=== PATIENT | male | born 1960 | race Caucasian/White ===

== ENCOUNTER 2017-02-16 14:00 | Emergency (ER) | payer OTHER ==
[~2017-02-16] VITALS: Ht 177.8 cm; Wt 102.0 kg
[~2017-02-16 14:00] MED LIST: FOLI1TAB4 PO; LAMO100 PO; LISI-515 PO; MULTTAB67 PO; PREG25 PO; VITA100T2 PO
[2017-02-16 14:16] VITALS: BP 149/75; PULSE 81; RESP 18; TEMP 98; O2SAT 98
[2017-02-16 14:28] VITALS: BP 171/96; PULSE 77; RESP 19; TEMP 98.6; O2SAT 98
[2017-02-16 15:27] LABS: AUTOMATED NEUTROPHIL # 7.8 TH/MM3 (1.8-7.7); BASOPHIL % 0.2 % (0.0-2.0); EOSINOPHIL # 0.2 TH/MM3 (0-0.4); EOSINOPHIL % 2.3 % (0.0-4.0); HEMATOCRIT 38.4 % (39.0-51.0); HEMO FLAGS DIFF FINAL; LYMPH % 16.2 % (9.0-44.0); LYMPHOCYTE # 1.7 TH/MM3 (1.0-4.8); MEAN CELL VOLUME 91.5 FL (80.0-100.0); MEAN CORPUSCULAR HEMOGLOBIN 31.4 PG (27.0-34.0); MEAN CORPUSCULAR HGB CONC 34.3 % (32.0-36.0); NEUT % 73.3 % (16.0-70.0); PLATELET COUNT 330 TH/MM3 (150-450); RED BLOOD COUNT 4.19 MIL/MM3 (4.50-5.90); RED CELL DISTRIBUTION WIDTH 14.2 % (11.6-17.2); WHITE BLOOD COUNT 10.7 TH/MM3 (4.0-11.0)
[2017-02-16 15:29] LABS: BICARBONATE 27.7 MEQ/L (21.0-32.0); POTASSIUM 4.3 MEQ/L (3.5-5.1)
[2017-02-16] MEDS ORDERED: IOHEXOL 350 MG/ML 10 ML VIAL (for RAD DIAG) IVCONTRAST ONE (15:31)
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
[2017-02-16] MEDS ORDERED: ERYTOIN10 RIGHT EYE (16:39)
[2017-02-16] MEDS ORDERED: IBUPROFEN 800 MG TAB PO ONE (16:45)
== END 2017-02-16 17:11 | disposition home or self-care (01) ==
LOC: NEPD 14:00
DX: S80.01XA Contusion of right knee, initial encounter (principal); S05.11XA Contusion of eyeball and orbital tissues, right eye, initial encounter; S60.221A Contusion of right hand, initial encounter; S80.811A Abrasion, right lower leg, initial encounter; E78.5 Hyperlipidemia, unspecified; F17.200 Nicotine dependence, unspecified, uncomplicated; V89.2XXA Person injured in unspecified motor-vehicle accident, traffic, initial encounter; Y92.410 Unspecified street and highway as the place of occurrence of the external cause
CPT/HCPCS: 70486; 72125; 73130; 73560; 73610; 74177; 80048; 85025; 99285; L0150; L3908; Q9967

== ENCOUNTER 2017-07-29 10:02 | Observation (INO) | payer MEDICARE, OTHER ==
[~2017-07-29] VITALS: Ht 177.8 cm; Wt 100.0 kg
[~2017-07-29 10:02] MED LIST changes: +ERYTOIN10 RIGHT EYE
[2017-07-29 10:05] VITALS: BP 164/116; PULSE 84; RESP 18; TEMP 97.7; O2SAT 98
[2017-07-29 10:26] VITALS: BP 139/87; PULSE 78; RESP 19; O2SAT 99
[2017-07-29] MEDS ORDERED: ROPI0.25 PO ×2 (10:33)
[2017-07-29] MEDS ORDERED: RISP2TAB37 PO ×2 (10:33)
[2017-07-29] MEDS ORDERED: AMBI10TA PO ×2 (10:33)
[2017-07-29] MEDS ORDERED: NORT50CA PO ×2 (10:33)
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
[2017-07-29] MEDS ORDERED: SODIUM CHLORIDE 0.9% FLUSH 10 ML FLUSH IVF PRN (10:45)
[2017-07-29] MEDS ORDERED: ASPIRIN 81 MG CHEW TAB PO ONE (10:45)
[2017-07-29] MEDS ORDERED: NITROGLYCERIN 0.4 MG SL 25 TABS/BTL SL ONE (10:45)
[2017-07-29 11:28] LABS: BILIRUBIN, URINE NEG (NEG); BLOOD, URINE NEG (NEG); GLUCOSE,URINE NEG (NEG); KETONE, URINE 10 mg/dL (NEG); NITRITE,URINE NEG (NEG); URINE COLOR LIGHT-YELLOW (YELLW/STRAW); URINE LEUKOCYTE ESTERASE NEG (NEG)
[2017-07-29 11:29] LABS: AUTOMATED NEUTROPHIL # 5.8 TH/MM3 (1.8-7.7); BASOPHIL % 0.3 % (0.0-2.0); EOSINOPHIL # 0.1 TH/MM3 (0-0.4); EOSINOPHIL % 1.5 % (0.0-4.0); HEMATOCRIT 39.4 % (39.0-51.0); HEMOGLOBIN 13.4 GM/DL (13.0-17.0); LYMPH % 21.4 % (9.0-44.0); LYMPHOCYTE # 1.8 TH/MM3 (1.0-4.8); MEAN CELL VOLUME 89.1 FL (80.0-100.0); MEAN CORPUSCULAR HEMOGLOBIN 30.3 PG (27.0-34.0); MEAN CORPUSCULAR HGB CONC 34.1 % (32.0-36.0); MEAN PLATELET VOLUME 6.8 FL (7.0-11.0); MONOCYTE # 0.7 TH/MM3 (0-0.9); NEUT % 68.8 % (16.0-70.0); PLATELET COUNT 339 TH/MM3 (150-450); RED BLOOD COUNT 4.43 MIL/MM3 (4.50-5.90); RED CELL DISTRIBUTION WIDTH 14.4 % (11.6-17.2); WHITE BLOOD COUNT 8.4 TH/MM3 (4.0-11.0)
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
[2017-07-29 11:34] LABS: PROTHROMBIN TIME - PATIENT 10.2 SEC (9.8-11.6)
[2017-07-29 11:44] LABS: ALBUMIN 3.8 GM/DL (3.4-5.0); ALT (GPT) 21 U/L (12-78); AST (GOT) 23 U/L (15-37); BICARBONATE 28.7 MEQ/L (21.0-32.0); BLOOD UREA NITROGEN 6 MG/DL (7-18); CHLORIDE 100 MEQ/L (98-107); CREATININE 0.98 MG/DL (0.60-1.30); GLOMERULAR FILTRATION RATE 79 ML/MIN (>89); GLUCOSE,RANDOM 107 MG/DL (74-106); MAGNESIUM 1.6 MG/DL (1.5-2.5); SODIUM (NA) 137 MEQ/L (136-145)
[2017-07-29 11:48] LABS: ALKALINE PHOSPHATASE 67 U/L (45-117); TOTAL BILIRUBIN ADULT 0.4 MG/DL (0.2-1.0); TOTAL PROTEIN 7.2 GM/DL (6.4-8.2); TROPONIN I LESS THAN 0.02 NG/ML (0.02-0.05)
[2017-07-29] MEDS ORDERED: MAGNESIUM HYDROXIDE SUSP 30 ML CUP PO PRN (13:30)
[2017-07-29] MEDS ORDERED: ONDANSETRON HCL 4 MG/2 ML VIAL IVP PRN (13:30)
[2017-07-29] MEDS ORDERED: SODIUM CHLORIDE 0.9% FLUSH 10 ML FLUSH IV FLUSH PRN (13:30)
[2017-07-29] MEDS ORDERED: NALOXONE HCL 0.4 MG/ML AMP IV PUSH PRN (13:30)
[2017-07-29 13:52] VITALS: BP 137/72; PULSE 79; RESP 19; O2SAT 99
[2017-07-29] MEDS: ENOXAPARIN SODIUM 40 MG/0.4 ML SYRINGE SQ SCH (13:52)
[2017-07-29] MEDS: MORPHINE SULFATE 2 MG/ML INJ IV PUSH PRN ×3 (13:52→22:03)
[2017-07-29] MEDS ORDERED: NITROGLYCERIN 0.4 MG SL 25 TABS/BTL SL PRN (15:15)
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
[2017-07-29] MEDS ORDERED: SULFAMETHOXAZOLE-TRIMETHOPRIM DS 800-160 MG TAB PO ONE (15:30)
[2017-07-29 16:44] VITALS: BP_SYST 116; BP_SYST 133; BP_DIAS 70; BP_DIAS 80; PULSE 77; PULSE 84; RESP 20; TEMP 98.2; O2SAT 98
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
--- NOTE | 2017-07-29 19:47 | EKG ---
Date Performed: 07/29/2017 Time Performed: 10:21:44 PTAGE: 57 years EKG: Sinus rhythm MARKED LEFT AXIS DEVIATION Since the previous tracing, no significant change noted ABNORMAL ECG PREVIOUS TRACING : 03/10/2016 07.49 DOCTOR: Alana Mccullough Interpretating Date/Time 07/29/2017 19:45:51
[2017-07-29 21:09] VITALS: BP 143/80; PULSE 75; RESP 18; TEMP 98.1; O2SAT 98
[2017-07-29] MEDS: SODIUM CHLORIDE 0.9% FLUSH 10 ML FLUSH IV FLUSH SCH (22:03)
[2017-07-30 00:09] VITALS: BP 125/69; PULSE 66; RESP 18; TEMP 98.2; O2SAT 93
[2017-07-30 03:36] VITALS: BP 124/74; PULSE 65; RESP 18; TEMP 98.1; O2SAT 96
[2017-07-30 04:35] VITALS: PULSE 64
[2017-07-30 05:30] LABS: ALBUMIN 3.3 GM/DL (3.4-5.0); AST (GOT) 19 U/L (15-37); BICARBONATE 26.9 MEQ/L (21.0-32.0); BLOOD UREA NITROGEN 9 MG/DL (7-18); CALCIUM 8.6 MG/DL (8.5-10.1); CHLORIDE 104 MEQ/L (98-107); CREATININE 1.21 MG/DL (0.60-1.30); GLOMERULAR FILTRATION RATE 62 ML/MIN (>89); GLUCOSE,RANDOM 100 MG/DL (74-106); SODIUM (NA) 140 MEQ/L (136-145)
[2017-07-30 05:32] LABS: ALT (GPT) 20 U/L (12-78)
[2017-07-30 05:36] LABS: ALKALINE PHOSPHATASE 58 U/L (45-117); TOTAL BILIRUBIN ADULT 0.3 MG/DL (0.2-1.0); TOTAL PROTEIN 6.7 GM/DL (6.4-8.2); TROPONIN I LESS THAN 0.02 NG/ML (0.02-0.05)
[2017-07-30 06:13] LABS: BASOPHIL % 0.5 % (0.0-2.0); EOSINOPHIL # 0.4 TH/MM3 (0-0.4); EOSINOPHIL % 6.7 % (0.0-4.0); HEMATOCRIT 37.8 % (39.0-51.0); HEMOGLOBIN 12.8 GM/DL (13.0-17.0); LYMPH % 34.1 % (9.0-44.0); MEAN CORPUSCULAR HEMOGLOBIN 30.4 PG (27.0-34.0); MEAN CORPUSCULAR HGB CONC 33.8 % (32.0-36.0); MEAN PLATELET VOLUME 6.8 FL (7.0-11.0); MONO % 9.6 % (0.0-8.0); MONOCYTE # 0.6 TH/MM3 (0-0.9); NEUT % 49.1 % (16.0-70.0); PLATELET COUNT 315 TH/MM3 (150-450); RED CELL DISTRIBUTION WIDTH 14.2 % (11.6-17.2)
[2017-07-30 08:07] VITALS: BP 111/66; PULSE 61; RESP 20; TEMP 98; O2SAT 100
[2017-07-30 08:45] VITALS: PULSE 65
[2017-07-30] MEDS: MORPHINE SULFATE 2 MG/ML INJ IV PUSH PRN ×3 (08:56→16:49)
[2017-07-30] MEDS ORDERED: SULFAMETHOXAZOLE-TRIMETHOPRIM DS 800-160 MG TAB PO SCH (09:00)
[2017-07-30] MEDS: SODIUM CHLORIDE 0.9% FLUSH 10 ML FLUSH IV FLUSH SCH (09:00)
[2017-07-30] MEDS ORDERED: ACETAMINOPHEN 325 MG TAB PO PRN (11:00)
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
[2017-07-30 12:02] VITALS: BP 131/65; PULSE 58; RESP 16; TEMP 97.5; O2SAT 97
[2017-07-30] MEDS ORDERED: GADODIAMIDE PF 287 MG/ML 5 ML VIAL (for RAD MRI) IVCONTRAST ONE (13:29)
--- NOTE | 2017-07-30 13:49 | RADRPT ---
EXAM DATE/TIME: 07/30/2017 13:10 [facility] COMPARISON: No previous studies available for comparison. INDICATIONS : Cephalgia. CONTRAST: 22 cc Omniscan (gadodiamide) IV MEDICAL HISTORY : Hypercholesterolemia. SURGICAL HISTORY : Appendectomy. wrist and knee surgery ENCOUNTER: Subsequent ACUITY: 2 day PAIN SCORE: 3/10 LOCATION: cranial TECHNIQUE: Multiplanar, multisequence MRI of the brain was performed both prior to and following the administrat ion of paramagnetic contrast. FINDINGS: CEREBRUM: The ventricles are normal for age. No evidence of midline shift, mass lesion, hemorrhage or acute in farction. No extraaxial fluid collections are seen. The pituitary gland and suprasellar cistern are normal in configuration. WHITE MATTER: No significant signal abnormalities are seen in the white matter. POSTERIOR FOSSA: The cerebellum and brainstem are intact. The 4th ventricle is midline. The cerebellopontine angle is unremarkable. The cerebellar tonsils are normal in position. DIFFUSION IMAGING: No focal areas of restricted diffusion are seen. No evidence of acute infarction. EXTRACRANIAL: The visualized portions of the orbits and paranasal sinuses are unremarkable. POST-CONTRAST: No abnormal areas of parenchymal or dural enhancement. No evidence of blood-brain barrier breakdown. CONCLUSION: Unremarkable exam for age with no evidence of hemorrhage, mass or infarction. Olvin Mayes MD on July 30, 2017 at 13:45 Board Certified Radiologist. This report was verified electronically.
[2017-07-30] MEDS ORDERED: REGADENOSON INJ 0.4 MG/5 ML SYR ONE (15:38)
--- NOTE | 2017-07-30 16:39 | MG ---
cc: Wilfrid Knowles MD, PhD TEST NUMBER: [id number] TECHNIQUE: A 17-channel EEG. DESCRIPTION: The background rhythm reveals a symmetrical alpha rhythm, frequency 8-9 Hz. Amplitude is about 20 microvolts. During drowsiness, there is slowing in the theta range. Occasional muscle artifact is identified. No lateralizing features are seen. The patient does fall asleep and normal sleep spindles and K complexes are seen. Photic results in a fairly well-developed driving response. INTERPRETATION: This is a normal electroencephalogram. Wilfrid Knowles MD, PhD LENY/SB , 04:27 PM , 04:38 PM
[2017-07-30] MEDS: ENOXAPARIN SODIUM 40 MG/0.4 ML SYRINGE SQ SCH (16:48)
--- NOTE | 2017-07-30 16:49 | RADRPT ---
EXAM DATE/TIME: 07/30/2017 14:35 [facility] COMPARISON: No previous studies available for comparison. INDICATIONS : Substernal chest pain radiating down left leg with dizziness and dyspnea. Abnormal EKG. DOSE: 31.2 mCi Tc99m Myoview at stress. 10.1 mCi Tc99m Myoview at rest. 0.4 mg Lexiscan STRESS SYMPTOMS: Chest pain and dyspnea. EJECTION FRACTION: 54% MEDICAL HISTORY : Hypertension. Hypercholesterolemia. Renal disease. Smoker. SURGICAL HISTORY : Appendectomy. ENCOUNTER: Initial ACUITY: 3 days PAIN SCALE: 7/10 LOCATION: Substernal chest TECHNIQUE: The patient underwent pharmacologic stress with infusion of prescribed dose. Continuous ECG tracing was monitored during stress. Gated SPECT imaging was performed after stress and conventional SPECT i maging was performed at rest. The examination was performed on a SPECT/CT scanner, both attenuation and non-corrected datasets were reviewed. FINDINGS: DISTRIBUTION: The maximum perfused segment at stress is in the anterior lateral wall. PERFUSION STUDY: The pattern of perfusion at stress is within normal limits. GATED STUDY: There is intact wall motion and thickening without hypokinetic or dyskinetic segments. CONCLUSION: 1. Normal wall motion with calculated ejection fraction. 2. No fixed or reversible wall defects to suggest ischemia or infarction. RISK CATEGORY: Low (<1% Annual Mortality Rate) Olvin Mayes MD on July 30, 2017 at 16:43 Board Certified Radiologist. This report was verified electronically.
[2017-07-30] MEDS ORDERED: SULF1TAB23 PO (17:04)
--- NOTE | 2017-07-30 17:10 | HHI.PR ---
Subjective Remarks Patient reports that chest pain is about the same. Denies any nausea or vomiting. Denies any lightheadedness or dizziness. Requesting morphine for pain. Objective Vital Signs Date Time Temp Pulse Resp B/P (MAP) Pulse Ox O2 Delivery O2 Flow Rate FiO2 07/30/17 12:02 97.5 58 16 131/65 (87) 97 07/30/17 08:45 65 07/30/17 08:07 98.0 61 20 111/66 (81) 100 07/30/17 04:35 64 07/30/17 03:36 98.1 65 18 124/74 (91) 96 07/30/17 00:09 98.2 66 18 125/69 (87) 93 07/29/17 21:09 98.1 75 18 143/80 (101) 98 I/O 07/29/17 07/29/17 07/29/17 07/30/17 07/30/17 07/30/17 07:00 15:00 23:00 07:00 15:00 23:00 Output Total 650 ml Balance -650 ml Output Urine Total 650 ml # Voids 2 Result Diagram: 07/30/17 0438 07/30/17 0435 Objective Remarks GENERAL: Patient sitting up in chair appears comfortable. SKIN: Warm and dry. Left axilla with purulence, minimal surrounding erythema. Appears to be improving. No surrounding erythema. HEAD: Normocephalic. EYES: No scleral icterus. No injection or drainage. NECK: Supple, trachea midline. No JVD or lymphadenopathy. CARDIOVASCULAR: Regular rate and rhythm without murmurs, gallops, or rubs. RESPIRATORY: Breath sounds equal bilaterally. No accessory muscle use. GASTROINTESTINAL: Abdomen soft, non-tender, nondistended. MUSCULOSKELETAL: No cyanosis, or edema. BACK: Nontender without obvious deformity. No CVA tenderness. A/P Assessment and Plan 57-year-old male admitted secondary to chest pain with reports of syncope, amnesia, and left axilla infection. //Chest pain Evaluate for ACS Follow cardiac enzymes Aspirin daily When necessary oxygen When necessary morphine for pain. When necessary nitroglycerin Follow on telemetry Plan for Lexiscan in a.m. if workup is negative Cardiology consult if Irena scan is positive = Lexiscan negative //Syncope //Amnesia History of concussions and postconcussive syndrome Check carotid ultrasound Follow on telemetry Etiology may be related to recurrent history of concussions Neurology consulted = EEG, MRI negative for acute process //Left axilla cellulitis Status post left axilla abscess drainage Patient did not take antibiotics as instructed 5 days ago Start Bactrim = Continue Bactrim to complete treatment course. Follow-up primary care. DVT prophylaxis Lovenox Discharge Planning Discharge home in good condition. Continue heart healthy diet. Activity ad gianna. Please see discharge medications for medication list. Follow-up with primary care Mark Alas MD Jul 30, 2017 17:10
[2017-07-30] MEDS ORDERED: NORTRIPTYLINE HCL 25 MG CAP PO SCH (21:00)
[2017-07-30] MEDS ORDERED: ROPI0.25 PO (22:39)
[2017-07-30] MEDS ORDERED: TRAZ100T10 PO (22:39)
[2017-07-30] MEDS ORDERED: MECL-62 PO (23:38)
--- NOTE | 2017-07-31 00:26 | EKG ---
Date Performed: 07/29/2017 Time Performed: 17:19:10 PTAGE: 57 years EKG: Sinus rhythm INFERIOR MYOCARDIAL INFARCTION ABNORMAL ECG PREVIOUS TRACING : 07/29/2017 10.21 DOCTOR: Maritza Mitchell Interpretating Date/Time 07/31/2017 00:13:06
[2017-07-31] MEDS ORDERED: ASPIRIN 325 MG TAB PO SCH (09:00)
[2017-07-31] MEDS ORDERED: risperiDONE 1 MG TAB PO SCH (09:00)
== END 2017-07-30 20:01 | disposition home or self-care (01) ==
LOC: NEPC 10:02 → NEDA 13:25 → NEPGCP 15:50
PROVIDERS: ADMIT Internal Medicine; ATTEND Internal Medicine
DX: R07.89 Other chest pain (principal); R55 Syncope and collapse; R06.02 Shortness of breath; R42 Dizziness and giddiness; R41.3 Other amnesia; M79.605 Pain in left leg; F31.77 Bipolar disorder, in partial remission, most recent episode mixed; L03.112 Cellulitis of left axilla; L02.412 Cutaneous abscess of left axilla; R94.31 Abnormal electrocardiogram [ECG] [EKG]; E78.00 Pure hypercholesterolemia, unspecified; E11.9 Type 2 diabetes mellitus without complications; F17.200 Nicotine dependence, unspecified, uncomplicated; Z79.82 Long term (current) use of aspirin; R00.1 Bradycardia, unspecified; F41.9 Anxiety disorder, unspecified; Z79.899 Other long term (current) drug therapy
CPT/HCPCS: 70553; 71046; 78452; 80053; 80307; 81001; 82550; 82552; 83735; 84484; 85025; 85610; 85730; 93005; 93017; 93880; 95819; 96372; 96374; 96376; 99285; A9502; A9579; G0378; J1650; J2270; J2785; 80048; 99284

== ENCOUNTER 2017-07-30 20:17 | Emergency (ER) | payer MEDICARE ==
[~2017-07-30] VITALS: Ht 177.8 cm; Wt 95.5 kg
[~2017-07-30 20:17] MED LIST changes: +AMBI10TA PO; +NORT50CA PO; +RISP2TAB37 PO; +ROPI0.25 PO; +SULF1TAB23 PO
[2017-07-30 20:33] VITALS: BP 127/60; PULSE 70; RESP 16; TEMP 98.7; O2SAT 98
[2017-07-30] MEDS ORDERED: ROPI0.25 PO (22:39)
[2017-07-30] MEDS ORDERED: TRAZ100T10 PO (22:39)
--- NOTE | 2017-07-30 22:51 | PD ---
HPI Chief Complaint: Medical Clearance Time Seen by Provider: 22:31 Travel History International Travel<30 days: No Contact w/Intl Traveler<30days: No Traveled to known affect area: No History of Present Illness HPI 57-year-old white male returns to the ER after being discharged in the past hour or 2 from inpatient after a evaluation of chest pain, headache and dizziness. He has had a nuclear stress test, MRI of the head and neck including carotid ultrasound. Patient had been medically cleared and discharged. He states that he came back to the ER because he did not feel comfortable going home. He states that he still has intermittent headache, dizziness in the sensation he is going to pass out. He claims that he has had a history of mental health as well as head injuries. He has been staying in hotel rooms. He states that he moved from [place] here recently looking for work. He is disabled due to mental health. Patient denies any active chest pain. No shortness of breath, nausea, vomiting. He does state that his symptoms appear to be worse when he stands and moves. He is currently on antibiotics for left axilla abscess. He had a recent incision and drainage performed. PFSH Past Medical History Asthma: No Bipolar Disorder: Yes Anxiety: Yes Depression: Yes Heart Rhythm Problems: Yes ("murmur or something like that") Cancer: No Cardiovascular Problems: Yes High Cholesterol: No Chest Pain: Yes Congestive Heart Failure: No COPD: No Diabetes: No Diminished Hearing: No Endocrine: No Genitourinary: No Musculoskeletal: No Neurologic: Yes (multiple head injuries, concussion, bipolar, migraines) Psychiatric: Yes (bipolar) Reproductive: No Respiratory: Yes (bad allergies in [place], currently congested) Immunizations Current: Yes Sleep Apnea: Yes Thyroid Disease: No Tetanus Vaccination: < 5 Years Influenza Vaccination: No Past Surgical History Appendectomy: Yes Other Surgery: Yes (I & D of abcess, appe, wrist sx, knee sx) Social History Alcohol Use: Yes Tobacco Use: Yes Substance Use: Yes (norco) Allergies-Medications (Allergen,Severity, Reaction): Coded Allergies: No Known Allergies (Unverified Allergy, Unknown, 07/29/17) Reported Meds & Prescriptions Reported Meds & Active Scripts Active Sulfamethoxazole-Trimethoprim 800-160 Mg Tab 1 Tab PO Q12HR 14 Days Lyrica (Pregabalin) 25 Mg Cap 50 Mg PO DAILY 30 Days Reported Trazodone (Trazodone HCl) 100 Mg Tablet 100 Mg PO HS Ropinirole 0.25 Mg Tab 0.25 Mg PO HS Risperdal (Risperidone) 2 Mg Tab 2 Mg PO DAILY Ambien (Zolpidem Tartrate) 10 Mg Tab 10 Mg PO HS PRN Nortriptyline (Nortriptyline HCl) 50 Mg Cap 100 Mg PO HS Review of Systems Except as stated in HPI: all other systems reviewed are Neg Physical Exam Narrative GENERAL: Well-developed, well-nourished in no apparent distress. Nontoxic appearing. The patient is resting comfortable in the examination room sleeping. HEAD: Normocephalic, atraumatic. EYES: Pupils equal round and reactive. Extraocular motions intact. No scleral icterus. No injection or drainage. ENT: Nose clear. Throat without erythema, tonsillar hypertrophy or exudate. Uvula midline. Airway patent. NECK: Trachea midline. Supple, nontender, moves head freely. No central bony tenderness or spasm. CARDIOVASCULAR: Regular rate and rhythm without murmurs, gallops, or rubs. RESPIRATORY: Clear to auscultation. Breath sounds equal bilaterally. No wheezes , rales, or rhonchi. GASTROINTESTINAL: Abdomen soft, non-tender, nondistended. No hepato-splenomegaly , or palpable masses. No guarding. EXTREMITIES: No clubbing, cyanosis, or edema. No joint tenderness. BACK: Nontender without deformity. No flank tenderness. NEUROLOGICAL: Awake, alert and oriented x 3 .Cranial nerves grossly intact. Motor and sensory grossly within normal limits. Normal speech. Data Data Last Documented VS Vital Signs Date Time Temp Pulse Resp B/P (MAP) Pulse Ox O2 Delivery O2 Flow Rate FiO2 07/30/17 20:33 98.7 70 16 127/60 (82) 98 Orders Orders Complete Blood Count With Diff (07/30/17 20:37) Basic Metabolic Panel (Bmp) (07/30/17 20:37) Electrocardiogram (07/30/17 22:45) Ed Discharge Order (07/30/17 23:35) Labs Laboratory Tests Test 07/30/17 23:00 White Blood Count 5.9 TH/MM3 Red Blood Count 4.31 MIL/MM3 Hemoglobin 12.9 GM/DL Hematocrit 38.4 % Mean Corpuscular Volume 89.2 FL Mean Corpuscular Hemoglobin 29.9 PG Mean Corpuscular Hemoglobin Concent 33.5 % Red Cell Distribution Width 14.8 % Platelet Count 321 TH/MM3 Mean Platelet Volume 6.5 FL Neutrophils (%) (Auto) 46.9 % Lymphocytes (%) (Auto) 37.1 % Monocytes (%) (Auto) 8.7 % Eosinophils (%) (Auto) 6.4 % Basophils (%) (Auto) 0.9 % Neutrophils # (Auto) 2.8 TH/MM3 Lymphocytes # (Auto) 2.2 TH/MM3 Monocytes # (Auto) 0.5 TH/MM3 Eosinophils # (Auto) 0.4 TH/MM3 Basophils # (Auto) 0.1 TH/MM3 CBC Comment DIFF FINAL Differential Comment Blood Urea Nitrogen 13 MG/DL Creatinine 1.43 MG/DL Random Glucose 99 MG/DL Calcium Level 8.3 MG/DL Sodium Level 139 MEQ/L Potassium Level 4.3 MEQ/L Chloride Level 104 MEQ/L Carbon Dioxide Level 28.2 MEQ/L Anion Gap 7 MEQ/L Estimat Glomerular Filtration Rate 51 ML/MIN [facility] Medical Decision Making Medical Screen Exam Complete: Yes Emergency Medical Condition: Yes Medical Record Reviewed: Yes Interpretation(s) Laboratory Tests Test 07/30/17 23:00 White Blood Count 5.9 TH/MM3 Red Blood Count 4.31 MIL/MM3 Hemoglobin 12.9 GM/DL Hematocrit 38.4 % Mean Corpuscular Volume 89.2 FL Mean Corpuscular Hemoglobin 29.9 PG Mean Corpuscular Hemoglobin Concent 33.5 % Red Cell Distribution Width 14.8 % Platelet Count 321 TH/MM3 Mean Platelet Volume 6.5 FL Neutrophils (%) (Auto) 46.9 % Lymphocytes (%) (Auto) 37.1 % Monocytes (%) (Auto) 8.7 % Eosinophils (%) (Auto) 6.4 % Basophils (%) (Auto) 0.9 % Neutrophils # (Auto) 2.8 TH/MM3 Lymphocytes # (Auto) 2.2 TH/MM3 Monocytes # (Auto) 0.5 TH/MM3 Eosinophils # (Auto) 0.4 TH/MM3 Basophils # (Auto) 0.1 TH/MM3 CBC Comment DIFF FINAL Differential Comment Blood Urea Nitrogen 13 MG/DL Creatinine 1.43 MG/DL Random Glucose 99 MG/DL Calcium Level 8.3 MG/DL Sodium Level 139 MEQ/L Potassium Level 4.3 MEQ/L Chloride Level 104 MEQ/L Carbon Dioxide Level 28.2 MEQ/L Anion Gap 7 MEQ/L Estimat Glomerular Filtration Rate 51 ML/MIN Differential Diagnosis Differential diagnosis: Bipolar, arrhythmia, electrolyte abnormality, substance abuse, malingering, chronic headache, posttraumatic stress disorder Narrative Course I reviewed the patient's medical record from his prior admissions as well as his imaging studies. I reviewed his laboratory tests from today. He is resting comfortable in examination room. Patient is sleeping. I see no emergent reason to readmit the patient today. He is advised to follow-up as an outpatient with a primary care doctor as well as a neurologist. 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 This is dizziness Diagnosis Primary Impression: Dizziness Referrals: Wilfrid Knowles MD PhD 1 week [facility] 2 days Patient Instructions: General Instructions Additional Instructions: Rest. Increase fluids. Meclizine. Follow-up with a primary care doctor next 2-3 days for recheck. Follow-up with a neurologist within 1 week. Med/Other Pt SpecificInfo: Prescription(s) given Disposition: 01 DISCHARGE HOME Condition: Stable Naveed Romero Jul 30, 2017 22:51
[2017-07-30 23:09] LABS: AUTOMATED NEUTROPHIL # 2.8 TH/MM3 (1.8-7.7); BASOPHIL # 0.1 TH/MM3 (0-0.2); BASOPHIL % 0.9 % (0.0-2.0); EOSINOPHIL # 0.4 TH/MM3 (0-0.4); EOSINOPHIL % 6.4 % (0.0-4.0); HEMATOCRIT 38.4 % (39.0-51.0); HEMOGLOBIN 12.9 GM/DL (13.0-17.0); LYMPH % 37.1 % (9.0-44.0); LYMPHOCYTE # 2.2 TH/MM3 (1.0-4.8); MEAN CELL VOLUME 89.2 FL (80.0-100.0); MEAN CORPUSCULAR HEMOGLOBIN 29.9 PG (27.0-34.0); MEAN CORPUSCULAR HGB CONC 33.5 % (32.0-36.0); MEAN PLATELET VOLUME 6.5 FL (7.0-11.0); MONO % 8.7 % (0.0-8.0); MONOCYTE # 0.5 TH/MM3 (0-0.9); NEUT % 46.9 % (16.0-70.0); PLATELET COUNT 321 TH/MM3 (150-450); RED BLOOD COUNT 4.31 MIL/MM3 (4.50-5.90); RED CELL DISTRIBUTION WIDTH 14.8 % (11.6-17.2); WHITE BLOOD COUNT 5.9 TH/MM3 (4.0-11.0)
[2017-07-30 23:28] LABS: BICARBONATE 28.2 MEQ/L (21.0-32.0); CALCIUM 8.3 MG/DL (8.5-10.1); CREATININE 1.43 MG/DL (0.60-1.30)
[2017-07-30] MEDS ORDERED: MECL-62 PO (23:38)
--- NOTE | 2017-07-31 16:11 | EKG ---
Date Performed: 07/30/2017 Time Performed: 23:51:17 PTAGE: 57 years EKG: SINUS BRADYCARDIA POSSIBLE LATERAL MYOCARDIAL INFARCTION ABNORMAL ECG PREVIOUS TRACING : 07/29/2017 17.19 Inferior wall myocardial infarction, but largely unchanged from prior tracing. DOCTOR: Estevan John Interpretating Date/Time 07/31/2017 16:08:51
== END 2017-07-31 00:24 | disposition home or self-care (01) ==
LOC: NED 20:17 → NEPD 07-31 00:24
DX: R42 Dizziness and giddiness (principal); R00.1 Bradycardia, unspecified; F31.9 Bipolar disorder, unspecified; F41.9 Anxiety disorder, unspecified; Z72.0 Tobacco use; Z79.899 Other long term (current) drug therapy
CPT/HCPCS: 80048; 85025; 93005; 99284

== ENCOUNTER 2017-07-31 01:51 | Emergency (ER) | payer MEDICARE ==
[~2017-07-31] VITALS: Ht 177.8 cm; Wt 101.1 kg
[~2017-07-31 01:51] MED LIST changes: -ERYTOIN10 RIGHT EYE; -FOLI1TAB4 PO; -LAMO100 PO; -LISI-515 PO; +MECL-62 PO; -MULTTAB67 PO; +TRAZ100T10 PO; -VITA100T2 PO
[2017-07-31 02:03] VITALS: BP 123/71; PULSE 63; RESP 16; TEMP 97.6; O2SAT 99
--- NOTE | 2017-07-31 03:45 | PD ---
HPI Chief Complaint: Psychiatric Symptoms Time Seen by Provider: 03:32 Travel History International Travel<30 days: No Contact w/Intl Traveler<30days: No Traveled to known affect area: No History of Present Illness HPI 57-year-old white male return to the ER after being seen in the ER earlier this evening by myself. He was discharged prior to my evaluation this evening after being admitted for chest pain and dizziness. He had an extensive workup including MRI, stress test and ultrasound. The patient returns a third time stating that he is having exacerbation of his PTSD because he does not feel it is been treated appropriately. Patient states that he is not homicidal or suicidal. Patient states that he would like to talk to a psychiatrist. He does not feel comfortable discussing his issues with this examiner. PFSH Past Medical History Asthma: No Bipolar Disorder: Yes Anxiety: Yes Depression: Yes Heart Rhythm Problems: Yes ("murmur or something like that") Cancer: No Cardiovascular Problems: Yes High Cholesterol: No Chest Pain: Yes Congestive Heart Failure: No COPD: No Diabetes: No Diminished Hearing: No Endocrine: No Genitourinary: No Musculoskeletal: No Neurologic: Yes (multiple head injuries, concussion, bipolar, migraines) Psychiatric: Yes (bipolar) Reproductive: No Respiratory: Yes (bad allergies in [place], currently congested) Immunizations Current: Yes Sleep Apnea: Yes Thyroid Disease: No Past Surgical History Appendectomy: Yes Other Surgery: Yes (I & D of abcess, appe, wrist sx, knee sx) Social History Alcohol Use: Yes Tobacco Use: Yes Substance Use: Yes (norco) Allergies-Medications (Allergen,Severity, Reaction): Coded Allergies: No Known Allergies (Unverified Allergy, Unknown, 07/29/17) Reported Meds & Prescriptions Reported Meds & Active Scripts Active Meclizine (Meclizine HCl) 25 Mg Tab 25 Mg PO QID PRN Sulfamethoxazole-Trimethoprim 800-160 Mg Tab 1 Tab PO Q12HR 14 Days Lyrica (Pregabalin) 25 Mg Cap 50 Mg PO DAILY 30 Days Reported Trazodone (Trazodone HCl) 100 Mg Tablet 100 Mg PO HS Ropinirole 0.25 Mg Tab 0.25 Mg PO HS Risperdal (Risperidone) 2 Mg Tab 2 Mg PO DAILY Ambien (Zolpidem Tartrate) 10 Mg Tab 10 Mg PO HS PRN Nortriptyline (Nortriptyline HCl) 50 Mg Cap 100 Mg PO HS Review of Systems General / Constitutional: No: Fever Eyes: No: Visual changes HENT: Positive: Headaches Cardiovascular: Positive: Chest Pain or Discomfort Respiratory: No: Shortness of Breath Gastrointestinal: No: Abdominal Pain Genitourinary: No: Dysuria Musculoskeletal: No: Pain Skin: No Rash Neurologic: Positive: Dizziness, Headache, No: Weakness, Paresthesia, Seizures Psychiatric: Positive: Anxiety, Depression, Substance Abuse, No: Suicidal Ideations, Disorder of Thought, Homicidal Ideation Endocrine: No: Polydipsia Hematologic/Lymphatic: No: Easy Bruising Physical Exam Narrative GENERAL: Well-nourished, well-developed patient. SKIN: Warm and dry. HEAD: Normocephalic and atraumatic. EYES: No scleral icterus. No injection or drainage. ENT: No nasal drainage noted. Mucous membranes pink. Airway patent. NECK: Supple, trachea midline. Moves head freely without obvious discomfort. CARDIOVASCULAR: Regular rate and rhythm without murmurs, gallops, or rubs. RESPIRATORY: Breath sounds equal bilaterally. No accessory muscle use. GASTROINTESTINAL: Abdomen soft, non-tender, nondistended. EXTREMITIES: No cyanosis or edema. BACK: Nontender without obvious deformity. No CVA tenderness. NEURO: Patient is alert and oriented. no sensorimotor deficits. Nonfocal. Normal speech. PSYCH: No delusions. No auditory or visual hallucinations. Data Data Last Documented VS Vital Signs Date Time Temp Pulse Resp B/P (MAP) Pulse Ox O2 Delivery O2 Flow Rate FiO2 07/31/17 02:03 97.6 63 16 123/71 (88) 99 Room Air Orders Orders Psych Screen (07/31/17 03:39) Ed Discharge Order (07/31/17 05:28) MDM Medical Decision Making Medical Screen Exam Complete: Yes Emergency Medical Condition: Yes Medical Record Reviewed: Yes Differential Diagnosis MDM: High Differential diagnoses: Schizophrenia, schizoaffective disorder, bipolar, anxiety, depression, adjustment reaction, mood disorder NOS, ODD, depressive disorder NOS, dementia, dementia with agitation, psychosis NOS, substance induced mood disorder, DMDD, Asperger syndrome, infection,electrolyte abnormality, malingering. Narrative Course Mental health screening discussed with the patient. Psychiatric screen ordered. The patient has been medically cleared. The patient has been evaluated by the psych screener. The patient has denied any suicidal homicidal ideation. He states that he has bipolar disorder and would like to be back on his medications. He is given outpatient treatment information and is considered stable to be discharged. He does not meet criteria for inpatient management. There is no indication for involuntary admission. This is medical clearance for psychiatric admission, Bipolar Diagnosis Primary Impression: Medical clearance for psychiatric admission Referrals: [facility] [place] [facility] day Patient Instructions: General Instructions Additional Instructions: Rest. Follow-up with the recommendations of the psych screener. Return to the ER for emergencies Disposition: 01 DISCHARGE HOME Condition: Stable Naveed Romero Jul 31, 2017 03:45
== END 2017-07-31 06:05 | disposition home or self-care (01) ==
LOC: NEPD 01:51
DX: F31.9 Bipolar disorder, unspecified (principal); R07.9 Chest pain, unspecified; R42 Dizziness and giddiness; F41.9 Anxiety disorder, unspecified; G47.30 Sleep apnea, unspecified; Z72.0 Tobacco use; Z79.899 Other long term (current) drug therapy
CPT/HCPCS: 99283